=== PATIENT | female | born 1955 | race Two or more races ===

== ENCOUNTER 2022-07-19 12:57 | Emergency (ER) | payer OTHER ==
[~2022-07-19] VITALS: Ht 162.6 cm; Wt 77.1 kg
[2022-07-19] MEDS ORDERED: IBUP600T27 PO (14:59)
[2022-07-19] MEDS ORDERED: PHENSUP38 PR (14:59)
[2022-07-19 15:51] VITALS: BP 157/101
== END 2022-07-19 15:54 | disposition home or self-care (01) ==
LOC: ER 12:57
DX: K64.9 Unspecified hemorrhoids (principal); Z90.49 Acquired absence of other specified parts of digestive tract